=== PATIENT | male | born 1990 | race Caucasian/White ===

== ENCOUNTER → 2019-12-09 11:02 | Outpatient (BNVA) | payer OTHER, SELFPAY | PROVIDERS: Family Provider Family Medicine; PCP Family Medicine; Visit Provider Nurse Practitioner | DX: R50.9 Fever, unspecified (principal) | CPT/HCPCS: 87400; 87635 ==

== ENCOUNTER 2022-05-14 08:43 | Outpatient (CLI) | payer OTHER, SELFPAY ==
--- NOTE | 2022-05-14 09:04 | XR_ITS ---
WS: [id number] Exam: XR chest 2V* [id number] Date/Time of Exam: 05/14/2022 9:14 AM Reason For Exam: Cough Comparison 07/04/2018. The lungs are clear and fully expanded. Regional bony elements are intact. No pleural effusions. Norm al cardiomediastinal silhouette. XR/XR chest 2V* [id number] IMPRESSION: 1. Negative chest.
== END 2022-05-14 08:44 | disposition home or self-care (01) ==
LOC: RAD 08:49
PROVIDERS: PCP Family Medicine; Visit Provider Family Medicine
DX: R05.9 Cough, unspecified (principal)
CPT/HCPCS: 71046

== ENCOUNTER → 2023-09-29 10:51 | Outpatient (BNVA) | payer OTHER, SELFPAY | PROVIDERS: PCP Family Medicine; Referring Provider Family Medicine; Visit Provider Physician Assistant | DX: R22.31 Localized swelling, mass and lump, right upper limb (principal) | CPT/HCPCS: 73130 ==

== ENCOUNTER → 2023-10-11 11:11 | Outpatient (BNVA) | payer OTHER, SELFPAY | PROVIDERS: PCP Family Medicine; Visit Provider Family Medicine | DX: J06.9 Acute upper respiratory infection, unspecified (principal) | CPT/HCPCS: 87400; 87426 ==

== ENCOUNTER 2023-11-16 07:05 | Day surgery (SDC) | payer OTHER, SELFPAY ==
[2023-11-16] VITALS (11 sets, daily range): BP systolic 149–174; BP diastolic 77–128; PULSE 98–127; RESP 18–28; TEMP 36.2–36.7; O2SAT 90–100; BMI 52.0
[2023-11-16] MEDS: sodium chloride 0.9% 1,000 ML 30 ML IV (07:37)
[2023-11-16] MEDS: ketorolac 30 mg/mL INJ IVP (07:41)
[2023-11-16] MEDS: acetaminophen 1,000 MG/100 ML PIGGYBACK 400 MG IV (07:42)
--- NOTE | 2023-11-16 08:03 | W.PM.OPSFHP ---
Same Day Surgery H&P Indication for Procedure/HPI DATE OF PROCEDURE: November 16, 2023 CHIEF COMPLAINT/INDICATIONFOR SURGICAL PROCEDURE: Right small finger cyst/mass PREOP DIAGNOSIS: Right small finger cyst/mass PLANNED PROCEDURE: Operation Date: 11/16/23 09:00 Proposed Procedures p Excision Mass/Lesion Upper Extremity Excision Finger Cyst/Right small finger cyst excision(Right) - Arnold Walthall, DO Medications/Allergies* Allergies/Adverse Reactions Allergy/AdvReac Type Severity Reaction Status Date / Time No Known Allergies Allergy Verified 11/15/23 09:36 Current Medications: Generic Name Dose Route Start Last Admin Trade Name Freq PRN Reason Stop Dose Admin Sodium Chloride 1,000 mls @ 30 mls/hr 11/16/23 07:15 11/16/23 07:37 Sodium Chloride 0.9% IV 11/17/23 07:14 30 mls/hr .Q24H KEM Administration Pertinent History/Comorbid Conditions* Medical History (Updated 10/11/23 @ 12:55 by Ciro Almonte MD) Fever Social History Smoking and tobacco/nicotine status: never used tobacco/nicotine Pertinent Exam Findings alert, oriented x 3, operative site marked and procedure specific exam findings Patient has painful mass of the right small finger distally at the finger pulp this is expanded since the last visit and is now roughly 2 cm x 2 cm, patient does have distal fingertip paresthesias from the mass. Please refer to office note for full detailed orthopedic examination: Recommendations Surgery/Procedure today Other Plans: Plan to proceed to the OR today for right small finger mass/cyst excision understand procedure risk benefits complication alternatives of surgery through shared decision make elects proceed with surgical intervention all questions answered this time. Coding Level of Care Code Acute Code for Evangelista Iraheta
--- NOTE | 2023-11-16 08:22 | ANES.PREANE2 ---
Pre-Anesthetic Assessment Height/Weight: Height 1.83 m Weight 174.179 kg Temp Pulse Resp BP Pulse Ox O2 Del Method 97.6 F 127 H 18 167/128 91 Room Air 11/16/23 07:21 11/16/23 07:21 11/16/23 07:21 11/16/23 07:21 11/16/23 07:21 11/16/23 07:21 Preop Diagnosis: Right small finger cyst/mass Operation Date: 11/16/23 09:00 Proposed Procedures p Excision Mass/Lesion Upper Extremity Excision Finger Cyst/Right small finger cyst excision(Right) - Arnold Boyle DO Familial anesthetic complications: None Was Beta Martha taken within 24 hours: N/A Was Clonidine taken within 24 hours: N/A Last intake: Intake Last Liquid Date 11/15/23 Last Liquid Time 22:00 Last Solid Date 11/15/23 Last Solid Time 17:00 Social No alcohol and No tobacco Exam alert, oriented x 3, clear to auscultation bilaterally and regular rate & rhythm Airway Mallampati: Class IV Dentition: chipped Comments: Comments: large neck and swift Metabolic Morbid Obesity Anesthetic Plan ASA status: 2 Anesthesia: MAC Risk of > 500 ml blood loss (7ml/kg in children): No Medications/Allergies Home Medications Medication Instructions Recorded Confirmed Last Taken Type ondansetron 4 mg disintegrating 4 mg PO Q8H PRN nausea and 11/16/23 Unknown Rx tablet vomiting 3 days #9 tabs tramadol 50 mg tablet 50 mg PO Q6H PRN pain #20 tabs 11/16/23 Unknown Rx Allergies Allergy/AdvReac Type Severity Reaction Status Date / Time No Known Allergies Allergy Verified 11/15/23 09:36 Current Medications Generic Name Dose Route Start Last Admin Trade Name Freq PRN Reason Stop Dose Admin Sodium Chloride 1,000 mls @ 30 mls/hr 11/16/23 07:15 11/16/23 07:37 Sodium Chloride 0.9% IV 11/17/23 07:14 30 mls/hr .Q24H KEM Administration PFSH Anesthesia Medical History Fever Social History Smoking and tobacco/nicotine status: never used tobacco/nicotine Data Anesthesia Cardiac Studies: No Data to Display
[2023-11-16] MEDS: ceFAZolin 1,000 MG in sodium chloride 0.9% (plus) 50 ML 100 MG IV (09:06)
[2023-11-16] MEDS: ceFAZolin 2,000 MG in sodium chloride 0.9% (plus) 50 ML 100 MG IV (09:07)
[2023-11-16] MEDS: BUPivacaine 0.5% INJ 10 mL 5 ML INJECTION (09:31)
[2023-11-16] MEDS: ROPivacaine 0.5% SDV 30 mL 25 MG INJECTION (09:31)
--- NOTE | 2023-11-16 09:59 | W.PM.BPON ---
Date of Procedure: [November 16, 2023] Surgeon: [Dr. 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
--- NOTE | 2023-11-16 10:08 | PM.PACU ---
PACU note Narrative: Patient is a 33-year-old male that just underwent a right small finger mass excision. Patient transferred to PACU in stable condition. Pain is well controlled. Dressing on hand is dry and in place. Patient's fingers are warm and well-perfused. Patient can wiggle fingers. normal cap refill under 2 seconds. Patient has normal elbow range of motion. Unable to assess sensation due to residual localized anesthetic. Exam: awake Disposition: discharged
--- NOTE | 2023-11-16 10:09 | PM.OP ---
Operative Report Date of procedure: November 16, 2023 Surgeon: Arnold Boyle DO Supervisor Riveting: Ciro Boyle PA-C: PA was necessary for assistance in this case with hand positioning to execute the procedure, retraction and protection of neurovascular structures as well as to assist with wound closure and dressing application. 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 Patient has a right small finger cyst/mass over the volar aspect just distal to the DIP and the pulp not significantly tender to palpation.? Patient has attempted conservative treatment and this has become significantly painful.? We talked about treatment options as far as nonoperative and operative intervention.? At this point time patient like a more permanent solution in the lowest chance of recurrence and as result through shared decision making we agreed to proceed with a right small finger mass/cyst excision.? Patient understands risk benefits complication alternatives surgical nonsurgical treatment options.? Understanding risk of surgery patient agrees to proceed.? All questions answered.? Consent obtained in the office. Procedure: Patient seen evaluate in the preoperative holding area.? Consent was signed and reviewed with patient.? All questions were answered at that time.? Correct extremity was then marked.? Once seen evaluated by anesthesia patient was then brought back to the operative suite.? Patient was then placed in supine position all bony prominences well-padded patient was properly secured to the bed.? An armboard was then applied for the right upper extremity.? A nonsterile tourniquet was applied to the right upper extremity arm.? Patient then underwent anesthesia per the anesthesia department.? Once appropriately anesthetized the right upper extremity was then prepped and draped in standard orthopedic fashion.? Final timeout performed.? Patient received appropriate preoperative antibiotics. Under sterile aseptic technique I began with local anesthetic for my preplanned surgical site.? Then I utilized an Esmarch tourniquet to exsanguinate the right upper extremity to 250 mmHg Patient had a large right small finger pulp mass/cyst was identified. This is more on the radial and volar aspect as result I did a standard Meño approach in oblique fashion to the apex of the DIP joint volarly on the ulnar side and then Meño to the PIP joint. This created a full-thickness flap I dissected sharply just through skin and then switched to Littler dissection scissors spread in line with the neurovascular bundles which were protected throughout the case. At this point time a full-thickness flap was mobilized and identified a large mass which measured 2 cm x 1.5 cm x 1 cm. This had appearance of a giant cell tumor. I then switched to Littler dissection scissors and spread longitudinally and mobilized around the cyst and utilized electrocautery bipolar to burn any adhesions keeping this adhered to the flexor tendon sheath. This did have a communication into the flexor tendon sheath this did not appear to go into the joint. The flexor tendon sheath was not violated or torn. I then subsequently mobilized radially ulnarly proximally and distally to left, set at stalk and then subsequently suffered and burned this with bipolar coagulation to excise the entirety of the mass off the communication to the flexor tendon sheath. This point in time this did violate the A5 davey but this was left alone as this did not affect any of patient's mechanics given it was of A5 and finger was taken through range of motion as well as appropriate tenodesis effect. 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 At this point in time verified the radial and ulnar bone will be radial bundle did have the nerve going directly on top of this mass which was carefully dissected off of the mass throughout the process and protected by my clinical laboratory assistant. At this point time tourniquet deflated hemostasis satisfactory. Hemostasis was satisfactory with bipolar electrocautery.? I then closed the incision with interrupted nylon sutures. Xeroform over the incisions 4 x 4's ABD soft roll and a soft dressing was applied.? Patient was then awakened from anesthesia and taken back in stable condition. Disposition: Patient taken back in stable condition recovering well.? Patient will receive appropriate discharge instructions as well as pain medication postoperatively.? We will follow-up with in the orthopedic office in 2 weeks.? Patient understands of any questions or concerns and contact the office.
[2023-11-16] MEDS: TRAMadol 50 mg Tablet PO (11:01)
--- NOTE | 2023-11-16 11:15 | ANE.PACU2 ---
Inpatient post-anesthesia follow up: Airway intact: Yes Vital signs: Temperature 97.3 F Pulse Rate 105 Respiratory Rate 18 Blood Pressure 174/95 Pulse Oximetry 92 Oxygen Delivery Me thod Room Air Oxygen Flow Rate 2 Fraction of Inspir ed Oxygen Hydration adequate: Yes Nausea and vomiting: No Pain level: 1 Mental status: Baseline
== END 2023-11-16 11:16 | disposition home or self-care (01) ==
PROVIDERS: PCP Family Medicine; Visit Provider Student in an Organized Health Care Education/Training Program
PROC: (CPT 26111; principal; 2023-11-16 08:50)
DX: R22.31 Localized swelling, mass and lump, right upper limb (principal); E66.01 Morbid (severe) obesity due to excess calories; Z68.43 Body mass index [BMI] 50.0-59.9, adult
CPT/HCPCS: 26111; 88309; J0131; J0690; J1100; J1885; J2405; J2704; J2795; J3010; J3490; J7030

== ENCOUNTER → 2023-12-06 14:57 | Outpatient (BNVA) | payer OTHER, SELFPAY | PROVIDERS: PCP Family Medicine; Visit Provider Student in an Organized Health Care Education/Training Program | DX: Z13.220 Encounter for screening for lipoid disorders (principal); Z13.1 Encounter for screening for diabetes mellitus; Z51.81 Encounter for therapeutic drug level monitoring | CPT/HCPCS: 80053; 80061; 83036; 85025 ==

== ENCOUNTER 2024-02-29 15:00 | Outpatient (CLI) | payer OTHER, SELFPAY | END 2024-02-29 15:01 | disposition home or self-care (01) | LOC: SLEEP 03-01 14:54 | PROVIDERS: PCP Family Medicine; Visit Provider Family Medicine | DX: G47.33 Obstructive sleep apnea (adult) (pediatric) (principal) | CPT/HCPCS: G0399 ==

== ENCOUNTER → 2025-07-29 07:48 | Outpatient (BNVA) | payer OTHER, SELFPAY | PROVIDERS: PCP Family Medicine; Visit Provider Family Medicine | DX: Z00.00 Encounter for general adult medical examination without abnormal findings (principal); Z13.6 Encounter for screening for cardiovascular disorders; Z13.1 Encounter for screening for diabetes mellitus; Z51.81 Encounter for therapeutic drug level monitoring; E55.9 Vitamin D deficiency, unspecified | CPT/HCPCS: 80053; 80061; 82306; 83036; 85025 ==